=== PATIENT | female | born 1940 | race Caucasian/White ===

== ENCOUNTER → 2019-08-01 | Outpatient (CLI) | payer OTHER ==
[~2019-08-01] MED LIST: OMNIPAQUE 350 MG/ML, 100ML BOTTLE ONE
== END | disposition home or self-care (01) ==
LOC: CFH 11:29
PROVIDERS: ATTEND Internal Medicine Gastroenterology
DX: C18.2 Malignant neoplasm of ascending colon (principal); K76.89 Other specified diseases of liver; M47.814 Spondylosis without myelopathy or radiculopathy, thoracic region
CPT/HCPCS: 71260; 74177; 82565; Q9967

== ENCOUNTER 2019-08-16 12:27 | Inpatient (IN) | payer OTHER ==
[~2019-08-16] VITALS: Ht 157.5 cm; Wt 55.0 kg
[~2019-08-16 12:27] MED LIST changes: +ALBU4TAB PO; +ALBU8.5H8 INH; +ATOR20TA37 PO; +BUDE180A INH; +CLOB15CR19 TP; +ESTRADIOL TP; +FLUO20TA25 PO; +LEVO50TA5 PO; +MONT10TA11 PO; -OMNIPAQUE 350 MG/ML, 100ML BOTTLE ONE; +PANT40TA5 PO; +THEO600T PO
[2019-08-16] MEDS ORDERED: LACTATED RINGERS 1,000 ML IV SCH (13:15)
[2019-08-16] MEDS ORDERED: CHLORHEXIDINE 15 ML UDC ONE (13:21)
[2019-08-16 13:24] LABS: BASOPHILS # (AUTO) 0.02 x10^3/uL (0-0.1); BASOPHILS % (AUTO) 0 % (0-1); EOSINOPHILS # (AUTO) 0.09 x10^3/uL (0-0.4); EOSINOPHILS % (AUTO) 1 % (1-7); LYMPHOCYTES # (AUTO) 1.77 x10^3/uL (1-3.4); LYMPHOCYTES % (AUTO) 22 % (22-44); MD NO; MEAN CORPUSCULAR HEMOGLOBIN 31.2 pg (27.0-34.8); MEAN CORPUSCULAR HGB CONC 33.1 g/dL (32.4-35.8); MEAN CORPUSCULAR VOLUME 94.4 fL (80-100); MONOCYTES # (AUTO) 0.58 x10^3/uL (0.2-0.8); MONOCYTES % (AUTO) 7 % (2-9); NEUTROPHILS # (AUTO) 5.53 x10^3/uL (1.8-6.8); NEUTROPHILS % (AUTO) 69 % (42-75); PLATELET COUNT 283 x10^3/uL (130-400); RED BLOOD COUNT 4.76 x10^6/uL (3.82-5.3); RED CELL DISTRIBUTION WIDTH 14.3 % (9.6-15.2)
[2019-08-16] MEDS ORDERED: CHLORHEXIDINE 15 ML UDC MM ONE (13:30)
[2019-08-16 13:37] LABS: ALBUMIN 4.1 g/dL (3.4-5.0); ANION GAP 9 mmol/L (5-15); CALCIUM 9.3 mg/dL (8.5-10.1); CHLORIDE 113 mmol/L (98-107); CREATININE 0.92 mg/dL (0.55-1.02)
[2019-08-16 13:39] LABS: ALANINE AMINOTRANSFERASE 38 U/L (12-78); ALKALINE PHOSPHATASE 62 U/L (45-117); BILIRUBIN,TOTAL 0.6 mg/dL (0.2-1.0); TOTAL PROTEIN 7.3 g/dL (6.4-8.2)
[2019-08-16] MEDS ORDERED: MIDAZOLAM 1 MG/ML, 2ML ONE (15:49)
[2019-08-16] MEDS ORDERED: FENTANYL PF 250 MCG/5ML ONE ×2 (15:49→18:51)
[2019-08-16] MEDS ORDERED: BUPIVACAINE/PF-EPI 0.5% 1:200K ONE (16:42)
[2019-08-16] MEDS ORDERED: INDOCYANINE GREEN 25 MG VIAL ONE (16:42)
[2019-08-16] MEDS ORDERED: DEXAMETHASONE 4 MG/ML, 1ML ONE (17:16)
[2019-08-16] MEDS ORDERED: CEFOTETAN PMX 1GM/50ML 50 ML ONE (17:17)
[2019-08-16] MEDS ORDERED: SUCCINYLCHOLINE 20 MG/ML, 10ML ONE (17:55)
[2019-08-16] MEDS ORDERED: hydrALAzine 20 MG/ML, 1ML ONE (17:55)
[2019-08-16] MEDS ORDERED: PROPOFOL 10 MG/ML, 20ML ONE (17:55)
[2019-08-16] MEDS ORDERED: ROCURONIUM 10MG/ML,5ML ONE (17:55)
[2019-08-16] MEDS ORDERED: HYDROmorphone 2 MG/ML, 1ML IVPush PRN (18:30)
[2019-08-16] MEDS ORDERED: MEPERIDINE/PF 25MG/ML,1ML IVPush PRN (18:30)
[2019-08-16] MEDS ORDERED: hydrALAzine 20 MG/ML, 1ML IV PRN (18:30)
[2019-08-16] MEDS ORDERED: OXYcodone 5 MG/5 ML ORAL.SOL UDC PO PRN (18:30)
[2019-08-16] MEDS ORDERED: PROMETHAZINE 25 MG/ML, 1ML IV PRN (18:30)
[2019-08-16] MEDS ORDERED: LABETALOL 5MG/ML, 20ML IV PRN (18:30)
[2019-08-16] MEDS ORDERED: ONDANSETRON 2MG/ML, 2ML IV PRN ×2 (18:30→21:30)
[2019-08-16] MEDS ORDERED: FENTANYL PF 100 MCG/2ML IV PRN (18:30)
[2019-08-16] MEDS ORDERED: ACETAMINOPHEN 325 MG TABLET PO PRN (18:30)
[2019-08-16] MEDS ORDERED: ONDANSETRON 2MG/ML, 2ML ONE (18:44)
[2019-08-16] MEDS ORDERED: KETOROLAC 30 MG/1 ML ONE (18:44)
[2019-08-16] MEDS ORDERED: OXYcodone 5 MG/5 ML ORAL.SOL UDC ONE (19:35)
[2019-08-16] MEDS ORDERED: FENTANYL PF 100 MCG/2ML ONE (19:35)
[2019-08-16] MEDS ORDERED: PROMETHAZINE 25 MG/ML, 1ML ONE (19:43)
[2019-08-16] MEDS ORDERED: CALCIUM CARBONATE 500 MG TAB.CHEW PO PRN (21:30)
[2019-08-16] MEDS: LACTATED RINGERS 1,000 ML IV SCH (21:30)
[2019-08-16] MEDS ORDERED: DEXAMETHASONE 4 MG/ML, 1ML IVPush PRN (21:30)
[2019-08-16] MEDS ORDERED: DIPHENHYDRAMINE 50 MG/ML, 1ML IVPush PRN (21:30)
[2019-08-16] MEDS ORDERED: LORazepam 2 MG/ML, 1ML IVPush PRN (21:30)
[2019-08-16] MEDS ORDERED: DIPHENHYDRAMINE 25 MG CAPSULE PO PRN (21:30)
[2019-08-16] MEDS ORDERED: LORazepam 1MG TABLET PO PRN (21:30)
[2019-08-16] MEDS ORDERED: TRAZODONE 50MG TABLET PO PRN (21:30)
[2019-08-16] MEDS ORDERED: HALOPERIDOL 5 MG/ML IVPush PRN (21:30)
[2019-08-16] MEDS ORDERED: SCOPOLAMINE 1MG PATCH TD PRN (21:30)
[2019-08-16] MEDS ORDERED: BUDESONIDE 0.5 MG/2 ML INHA NPPB SCH (21:36)
[2019-08-16] MEDS ORDERED: MORPHINE SULFATE 4 MG/ML, 1ML IV PRN (22:00)
[2019-08-16] MEDS ORDERED: CLOBETASOL PROPIONATE CRM 0.05%, 15GM TP SCH (22:00)
[2019-08-16] MEDS: KETOROLAC 30 MG/1 ML IVPush SCH (22:20)
[2019-08-16] MEDS: THEOPHYLLINE 100 MG CAP.ER.24H PO SCH (22:20)
[2019-08-16] MEDS: ACETAMINOPHEN 500 MG TABLET PO SCH (22:20)
[2019-08-16] MEDS: ATORVASTATIN 20 MG TABLET PO SCH (22:26)
[2019-08-17 00:27] VITALS: BP 122/71
[2019-08-17] MEDS: ALBUTEROL 4 MG TABLET PO SCH ×3 (01:59→21:00)
[2019-08-17 02:00] VITALS: BP 127/73
[2019-08-17 03:17] LABS: BASOPHILS # (AUTO) 0.03 x10^3/uL (0-0.1); BASOPHILS % (AUTO) 0 % (0-1); EOSINOPHILS % (AUTO) 0 % (1-7); LYMPHOCYTES # (AUTO) 0.64 x10^3/uL (1-3.4); LYMPHOCYTES % (AUTO) 5 % (22-44); MD SCAN; MEAN CORPUSCULAR HEMOGLOBIN 31.8 pg (27.0-34.8); MEAN CORPUSCULAR HGB CONC 33.7 g/dL (32.4-35.8); MEAN CORPUSCULAR VOLUME 94.4 fL (80-100); MONOCYTES # (AUTO) 0.71 x10^3/uL (0.2-0.8); MONOCYTES % (AUTO) 6 % (2-9); NEUTROPHILS # (AUTO) 10.96 x10^3/uL (1.8-6.8); NEUTROPHILS % (AUTO) 89 % (42-75); PLATELET COUNT 248 x10^3/uL (130-400); RED BLOOD COUNT 4.54 x10^6/uL (3.82-5.3); RED CELL DISTRIBUTION WIDTH 14.5 % (9.6-15.2)
[2019-08-17] MEDS: ACETAMINOPHEN 500 MG TABLET PO SCH ×4 (03:19→20:55)
[2019-08-17] MEDS: KETOROLAC 30 MG/1 ML IVPush SCH ×3 (03:20→16:03)
[2019-08-17] MEDS: LACTATED RINGERS 1,000 ML IV SCH ×4 (03:27→21:30)
[2019-08-17 03:29] LABS: ALBUMIN 3.3 g/dL (3.4-5.0); ANION GAP 8 mmol/L (5-15); CALCIUM 8.8 mg/dL (8.5-10.1); CHLORIDE 112 mmol/L (98-107); CREATININE 0.77 mg/dL (0.55-1.02)
[2019-08-17 04:05] VITALS: BP 124/59
[2019-08-17] MEDS: LEVOTHYROXINE 50 MCG TABLET PO SCH (05:32)
[2019-08-17] MEDS: PANTOPRAZOLE 40MG TABLET PO SCH (05:32)
[2019-08-17 06:57] VITALS: BP 113/58
[2019-08-17] MEDS: MONTELUKAST 10 MG TABLET PO SCH (08:44)
[2019-08-17] MEDS: ENOXAPARIN 40 MG/0.4 ML SQ SCH (08:44)
[2019-08-17] MEDS: FLUOXETINE HCL 20 MG CAPSULE PO SCH (08:44)
[2019-08-17] MEDS ORDERED: ALBUTEROL SULFATE 2.5 MG/3 ML NPPB SCH (09:00)
[2019-08-17] MEDS: THEOPHYLLINE 100 MG CAP.ER.24H PO SCH ×2 (10:20→20:55)
[2019-08-17 12:23] VITALS: BP 105/56
[2019-08-17] MEDS: D5%-0.45NACL+KCL 20MEQ 1,000 ML IV SCH (13:31)
[2019-08-17 19:53] VITALS: BP 105/60
[2019-08-17] MEDS: ATORVASTATIN 20 MG TABLET PO SCH (20:54)
[2019-08-18 01:53] VITALS: BP 112/62
[2019-08-18 03:04] LABS: BASOPHILS # (AUTO) 0.05 x10^3/uL (0-0.1); BASOPHILS % (AUTO) 1 % (0-1); EOSINOPHILS # (AUTO) 0.11 x10^3/uL (0-0.4); EOSINOPHILS % (AUTO) 1 % (1-7); LYMPHOCYTES # (AUTO) 2.05 x10^3/uL (1-3.4); LYMPHOCYTES % (AUTO) 20 % (22-44); MD NO; MEAN CORPUSCULAR HEMOGLOBIN 30.9 pg (27.0-34.8); MEAN CORPUSCULAR VOLUME 93.7 fL (80-100); MEAN PLATELET VOLUME 8.1 fL (7.4-10.4); MONOCYTES # (AUTO) 0.45 x10^3/uL (0.2-0.8); MONOCYTES % (AUTO) 4 % (2-9); NEUTROPHILS # (AUTO) 7.52 x10^3/uL (1.8-6.8); NEUTROPHILS % (AUTO) 74 % (42-75); PLATELET COUNT 228 x10^3/uL (130-400); RED BLOOD COUNT 4.08 x10^6/uL (3.82-5.3); RED CELL DISTRIBUTION WIDTH 14.3 % (9.6-15.2)
[2019-08-18] MEDS: ACETAMINOPHEN 500 MG TABLET PO SCH ×4 (03:11→21:17)
[2019-08-18 03:17] LABS: ALBUMIN 2.9 g/dL (3.4-5.0); ANION GAP 6 mmol/L (5-15); CALCIUM 8.6 mg/dL (8.5-10.1); CHLORIDE 110 mmol/L (98-107)
[2019-08-18 03:18] LABS: CREATININE 0.74 mg/dL (0.55-1.02)
[2019-08-18] MEDS: PANTOPRAZOLE 40MG TABLET PO SCH (05:52)
[2019-08-18] MEDS: LEVOTHYROXINE 50 MCG TABLET PO SCH (05:52)
[2019-08-18 06:46] VITALS: BP 114/69
[2019-08-18] MEDS: ENOXAPARIN 40 MG/0.4 ML SQ SCH (08:17)
[2019-08-18] MEDS: MONTELUKAST 10 MG TABLET PO SCH (08:17)
[2019-08-18] MEDS: ALBUTEROL 4 MG TABLET PO SCH ×2 (08:17→21:17)
[2019-08-18] MEDS: FLUOXETINE HCL 20 MG CAPSULE PO SCH (08:17)
[2019-08-18] MEDS: LACTATED RINGERS 1,000 ML IV SCH ×2 (09:30→17:22)
[2019-08-18] MEDS: D5%-0.45NACL+KCL 20MEQ 1,000 ML IV SCH (10:00)
[2019-08-18] MEDS: THEOPHYLLINE 100 MG CAP.ER.24H PO SCH ×2 (10:07→21:18)
[2019-08-18 13:07] VITALS: BP 111/57
[2019-08-18 19:04] VITALS: BP 135/70
[2019-08-18] MEDS: ATORVASTATIN 20 MG TABLET PO SCH (21:17)
[2019-08-19 00:53] VITALS: BP 128/61
[2019-08-19] MEDS: LACTATED RINGERS 1,000 ML IV SCH ×3 (01:07→16:25)
[2019-08-19 02:59] LABS: BASOPHILS # (AUTO) 0.06 x10^3/uL (0-0.1); BASOPHILS % (AUTO) 1 % (0-1); EOSINOPHILS # (AUTO) 0.14 x10^3/uL (0-0.4); EOSINOPHILS % (AUTO) 2 % (1-7); LYMPHOCYTES # (AUTO) 1.81 x10^3/uL (1-3.4); LYMPHOCYTES % (AUTO) 21 % (22-44); MD NO; MEAN CORPUSCULAR HEMOGLOBIN 31.1 pg (27.0-34.8); MEAN CORPUSCULAR HGB CONC 33.3 g/dL (32.4-35.8); MEAN CORPUSCULAR VOLUME 93.5 fL (80-100); MEAN PLATELET VOLUME 8.1 fL (7.4-10.4); MONOCYTES # (AUTO) 0.53 x10^3/uL (0.2-0.8); MONOCYTES % (AUTO) 6 % (2-9); NEUTROPHILS # (AUTO) 6.16 x10^3/uL (1.8-6.8); NEUTROPHILS % (AUTO) 71 % (42-75); PLATELET COUNT 227 x10^3/uL (130-400); RED BLOOD COUNT 3.82 x10^6/uL (3.82-5.3)
[2019-08-19 03:03] LABS: ALBUMIN 2.5 g/dL (3.4-5.0); ANION GAP 6 mmol/L (5-15); CHLORIDE 113 mmol/L (98-107); CREATININE 0.64 mg/dL (0.55-1.02)
[2019-08-19] MEDS: ACETAMINOPHEN 500 MG TABLET PO SCH ×4 (03:38→21:58)
[2019-08-19] MEDS: LEVOTHYROXINE 50 MCG TABLET PO SCH (05:51)
[2019-08-19] MEDS: PANTOPRAZOLE 40MG TABLET PO SCH (05:51)
[2019-08-19] MEDS: D5%-0.45NACL+KCL 20MEQ 1,000 ML IV SCH (05:51)
[2019-08-19 06:32] VITALS: BP 143/69
[2019-08-19] MEDS: FLUOXETINE HCL 20 MG CAPSULE PO SCH (07:55)
[2019-08-19] MEDS: MONTELUKAST 10 MG TABLET PO SCH (07:55)
[2019-08-19] MEDS: ENOXAPARIN 40 MG/0.4 ML SQ SCH (07:55)
[2019-08-19] MEDS: ALBUTEROL 4 MG TABLET PO SCH ×2 (07:55→21:58)
[2019-08-19] MEDS: THEOPHYLLINE 100 MG CAP.ER.24H PO SCH ×2 (10:03→21:58)
[2019-08-19 13:52] VITALS: BP 123/71
[2019-08-19 19:34] VITALS: BP 139/79
[2019-08-19] MEDS: ATORVASTATIN 20 MG TABLET PO SCH (21:58)
[2019-08-20] MEDS: LACTATED RINGERS 1,000 ML IV SCH ×2 (00:32→09:30)
[2019-08-20 01:31] VITALS: BP 131/63
[2019-08-20] MEDS: D5%-0.45NACL+KCL 20MEQ 1,000 ML IV SCH (02:40)
[2019-08-20] MEDS: ACETAMINOPHEN 500 MG TABLET PO SCH ×2 (03:51→10:21)
[2019-08-20] MEDS: PANTOPRAZOLE 40MG TABLET PO SCH (06:00)
[2019-08-20] MEDS: LEVOTHYROXINE 50 MCG TABLET PO SCH (06:00)
[2019-08-20 07:06] VITALS: BP 117/69
[2019-08-20] MEDS: MONTELUKAST 10 MG TABLET PO SCH (08:28)
[2019-08-20] MEDS: FLUOXETINE HCL 20 MG CAPSULE PO SCH (08:28)
[2019-08-20] MEDS: ALBUTEROL 4 MG TABLET PO SCH (08:28)
[2019-08-20] MEDS: ENOXAPARIN 40 MG/0.4 ML SQ SCH (08:29)
[2019-08-20] MEDS: THEOPHYLLINE 100 MG CAP.ER.24H PO SCH (10:21)
[2019-08-20 13:25] VITALS: BP 138/65
== END 2019-08-20 14:10 | disposition home or self-care (01) | DRG 330 ==
LOC: ORIP 12:27 → EDSTATUS 16:00 → 4NE 20:50
PROVIDERS: ADMIT Colon & Rectal Surgery; ATTEND Colon & Rectal Surgery
PROC: 0DTF0ZZ Resection of Right Large Intestine, Open Approach (ICD-10-PCS; principal; 2019-08-17)
PROC: 0DJD4ZZ Inspection of Lower Intestinal Tract, Percutaneous Endoscopic Approach (ICD-10-PCS; 2019-08-17)
DX: C18.2 Malignant neoplasm of ascending colon (principal); K62.5 Hemorrhage of anus and rectum; C18.9 Malignant neoplasm of colon, unspecified; K66.0 Peritoneal adhesions (postprocedural) (postinfection); Z53.31 Laparoscopic surgical procedure converted to open procedure; Z90.710 Acquired absence of both cervix and uterus; Z88.2 Allergy status to sulfonamides; Z91.018 Allergy to other foods
CPT/HCPCS: 36415; 80048; 80053; 82040; 83735; 85025; 86850; 86900; 88307; 88309; 93005; G0378; J1100; J1650; J1885; J2250; J2270; J2405; J2550; J2704; J3010; J0330; J0360; J3480; J3490; J7120

== ENCOUNTER 2019-09-01 10:26 | Outpatient (CLI) | payer OTHER | END 2019-09-01 23:59 | disposition home or self-care (01) | LOC: RAD 10:26 | PROVIDERS: ATTEND Colon & Rectal Surgery | DX: I82.409 Acute embolism and thrombosis of unspecified deep veins of unspecified lower extremity (principal); T81.9XXA Unspecified complication of procedure, initial encounter; M79.89 Other specified soft tissue disorders; Y84.9 Medical procedure, unspecified as the cause of abnormal reaction of the patient, or of later complication, without mention of misadventure at the time of the procedure; Y92.89 Other specified places as the place of occurrence of the external cause ==